=== PATIENT | female | born 1970 | race Caucasian/White ===

== ENCOUNTER → 2018-06-14 | Outpatient (CLI) | payer OTHER ==
--- NOTE | 2018-06-14 09:44 | RAD ---
EXAM: Right knee, 3 views. HISTORY: Pain. COMPARISON: None. FINDINGS: 3 views of the right knee are obtained. There is no fracture, dislocation or subluxation. There is trace joint fluid without a significant effusion. IMPRESSION: No acute osseous finding. Electronically signed by: Olga Cortes MD (06/14/2018 9:41 AM) [facility]
== END | disposition home or self-care (01) ==
LOC: RAD 09:24
PROVIDERS: ATTEND Physician Assistant Medical
DX: M25.561 Pain in right knee (principal)
CPT/HCPCS: 73562